=== PATIENT | female | born 1965 | race African-American/Black ===

== ENCOUNTER 2016-10-21 09:00 | Day surgery (SDC) | payer BC, OTHER ==
[2016-10-13 11:01] LABS: HEMATOCRIT 39.1 % (36.0-48.0); HEMOGLOBIN 12.9 g/dL (12.0-16.0)
--- NOTE | ~2016-10-21 | OP ---
Record Of Operation [facility] [address] [place]. [address] NAME: KENNETH CHANEL : 63 STATUS : REG [facility] [place] PAT#: [id number] AGE: 51 ADM/REG DATE : 10/20/16 MR#: [id number] REPORT SERV DATE: 10/21/16 DICTATED BY: JERALD MCKEON DATE: 10/21/16 REPORT STATUS : Draft TRANSCRIBED BY: MODMaya DATE: 10/21/16 DATE OF PROCEDURE: 10/21/2016 PREOPERATIVE DIAGNOSES: Medial thigh tissue excess, laxity, ptosis, and lipodystrophy. POSTOPERATIVE DIAGNOSES: Medial thigh tissue excess, laxity, ptosis, and lipodystrophy. PROCEDURE PERFORMED: Bilateral medial thigh lifts with liposuction. ANESTHESIA: General. ESTIMATED BLOOD LOSS: 50 mL. DETAILS OF PROCEDURE: After informed consent was obtained preoperatively. The patient remained under general anesthesia following her orthopedic procedure performed by Dr. Yandel Sanchez. She was repositioned and re-prepped and draped for the medial thigh lift. The areas of planned incision and dissection were infiltrated with local anesthetic mix as well as tumescent solution being infiltrated for the areas of planned liposuction. This was given time to take effect. A total of 600 mL of tumescent solution was used and then liposuction was performed bilaterally for contouring and pretunneling, removing 550 mL from the right and 475 mL from the left. Following this starting on the left side, the tissue excision was performed using a hockey-stick type technique and incision line coursing from the groin to the posterior medial thigh. The area was excised sharply with electrocautery removing skin and fatty tissue. Any significant lymphatic and/or neurovascular structures were doubly clamped, divided, and ligated as needed. Ligation was with 3-0 Vicryl ties. After removal of the skin and fatty tissue, closure was performed in a layered fashion with a deep layer of 2-0 V-Loc 180 followed by 3-0 and 4-0 Monocryl running, layered closure. A similar procedure was performed bilaterally. From the left side, 208.8 g of tissue were removed, and from the right side, 167.3 g of tissue were removed. After completion of the skin closure, Dermabond was applied. Sterile dressings were applied. She was placed in postoperative garments and taken to PACU in stable condition. The patient tolerated the procedure well. Sponge and needle counts were correct. CC/MODL Jerald Mckeon M.D. / [id number] CC: MD EMMY Ervin STEVEN NICHOLAS
--- NOTE | ~2016-10-21 | OP ---
Record Of Operation [facility] [address] [facility] [place] [address] NAME: KENNETH CHANEL : 63 STATUS : REG [facility] [place] PAT#: [id number] AGE: 51 ADM/REG DATE : 10/20/16 MR#: [id number] REPORT SERV DATE: 10/21/16 DICTATED BY: YANDEL PITTS DATE: 10/21/16 REPORT STATUS : Draft TRANSCRIBED BY: MODL DATE: 10/21/16 DATE OF PROCEDURE: 10/21/2016 PREOPERATIVE DIAGNOSES: 1. Left shoulder impingement syndrome. 2. Left shoulder AC arthritis. POSTOPERATIVE DIAGNOSES: 1. Left shoulder impingement syndrome. 2. Left shoulder AC arthritis. PROCEDURE: 1. Left shoulder arthroscopic distal clavicle resection. 2. Arthroscopic subacromial decompression. SURGEON: Yandel Pitts M.D. ANESTHESIA: General. ESTIMATED BLOOD LOSS: Minimal. IMPLANTS: None. SPECIMEN: None. ANTIBIOTICS: Ancef was given prior to incision. HISTORY: The patient is a 51-year-old female, long-standing history of left shoulder pain, which has been treated conservatively with injections and other treatments. She has failed those treatments. She had a previous decompression on her right shoulder and we discussed the risks and benefits of surgery and of treatment with her. She elected for surgery. We discussed risks including cardiopulmonary complication, anesthesia, damage to surrounding tissues, infection, or continued pain. I discussed all those risks, she elected to proceed. OPERATIVE NOTE: The patient was seen in the preoperative area, consented, and marked. We answered all questions she had to her satisfaction. She was then taken back to the operative suite, placed in supine, and underwent general anesthesia. We prepped and draped the left shoulder in sterile fashion after putting her in the beach chair position. We then paused to perform a time-out confirming correct patient, procedure, diagnosis, and extremity. I made a standard posterior portal. I then entered the shoulder joint. Once in the shoulder joint, I made an anterior portal based on spinal needle localization. We examined her shoulder, rotator cuff was intact. Her biceps was intact. Labrum was intact. The cartilage was intact. No significant abnormalities inside the shoulder joint. We then went up into the subacromial space. Once in the subacromial space, we performed a bursectomy Record Of Operation [facility] [address] [place]. [address] NAME: KENNETH CHANEL : 63 STATUS : REG [facility] [place] PAT#: [id number] AGE: 51 ADM/REG DATE : 10/20/16 MR#: [id number] REPORT SERV DATE: 10/21/16 DICTATED BY: YANDEL PITTS DATE: 10/21/16 REPORT STATUS : Draft TRANSCRIBED BY: DAFNE DATE: 10/21/16 with a shaver. I then performed acromioplasty with a bur. We then identified the distal clavicle and performed a distal clavicle resection with a bur. This was completed, we exited the shoulder, we then closed all the wounds, placed her in a sling. She was awakened with no complications and taken to PACU in stable condition. POSTOP PLAN: She will be discharged home today. BERTA/DAFNE Yandel Pitts MD / [id number] CC: MD Mario Ervin Steven Nicholas
[~2016-10-21 09:00] MED LIST: ADALAT CC30 MG PO; BENTYL20 PO; CYMBALTA20 PO; MULTIPLE VIT PO; NAP500 PO; NEXIUM40 PO; ULTRAM50 PO; ZANTAC 150 PO; ZOCOR20 PO
== END 2016-10-21 23:59 | disposition home or self-care (01) ==
LOC: MSC 09:00
PROVIDERS: Orthopaedic Surgery Sports Medicine; Plastic Surgery
PROC: 0J0M0ZZ Alteration of Left Upper Leg Subcutaneous Tissue and Fascia, Open Approach (ICD-10-PCS; 2016-10-21)
PROC: 0J0L0ZZ Alteration of Right Upper Leg Subcutaneous Tissue and Fascia, Open Approach (ICD-10-PCS; 2016-10-21)
PROC: 0PBB4ZZ Excision of Left Clavicle, Percutaneous Endoscopic Approach (ICD-10-PCS; principal; 2016-10-21 07:15)
PROC: 0RNK4ZZ Release Left Shoulder Joint, Percutaneous Endoscopic Approach (ICD-10-PCS; 2016-10-21 07:15)
DX: M75.42 Impingement syndrome of left shoulder (principal); M19.012 Primary osteoarthritis, left shoulder; E88.1 Lipodystrophy, not elsewhere classified; I73.00 Raynaud's syndrome without gangrene; M48.00 Spinal stenosis, site unspecified; M79.7 Fibromyalgia; K21.9 Gastro-esophageal reflux disease without esophagitis; K58.9 Irritable bowel syndrome, unspecified; K44.9 Diaphragmatic hernia without obstruction or gangrene; Z88.8 Allergy status to other drugs, medicaments and biological substances; Z90.49 Acquired absence of other specified parts of digestive tract; Z90.710 Acquired absence of both cervix and uterus; Z98.890 Other specified postprocedural states; Z79.899 Other long term (current) drug therapy; Z86.010 Personal history of colon polyps
CPT/HCPCS: 85014; 85018; 93005; A9270-GY; J0690; J2250; J2405; J2710; J2795; J3010

== ENCOUNTER 2016-11-07 18:14 | Inpatient (IN) | payer BC, OTHER ==
--- NOTE | ~2016-11-07 | DS ---
Discharge Summary [facility] [address] [place]. [address] NAME: KENNETH CHANEL : 63 STATUS : DIS IN PAT#: [id number] AGE: 51 ADM/REG DATE : 11/07/16 MR#: [id number] REPORT SERV DATE: 11/10/16 DICTATED BY: RENE ROOT DATE: 11/10/16 REPORT STATUS : Draft TRANSCRIBED BY: MODL DATE: 11/10/16 ADMISSION DATE: 11/07/2016 DISCHARGE DATE: 11/10/2016 REASON FOR ADMISSION: This is a 51-year-old Afro-[place] female, who came in with chief complaint of shortness of breath and dyspnea on exertion. The patient had a recent left shoulder surgery on 10/21/2016 as well as left thigh surgery recently as well. In the emergency room, a CTA of the chest revealed bilateral pulmonary emboli and the patient was hemodynamically stable, so hospitalist was asked to admit the patient. DISCHARGE DIAGNOSES: 1. Acute bilateral pulmonary emboli, status post recent surgery. 2. Hypoxemia, resolved. 3. Raynaud's disease. HOSPITAL COURSE: Bilateral pulmonary emboli. The patient was admitted, started on Lovenox subcu 1 mg/kg and bilateral lower extremity ultrasound was obtained which was negative for DVT, also left upper extremity ultrasound obtained which was negative for DVT as well. The patient was converted over to oral Eliquis. Initially, she was requiring O2 on admission, but she has since weaned off. O2 sats within normal limits on room air. No dyspnea. No chest pain. Vital signs stable. The patient will be sent home with a prescription for three months of oral Eliquis. DISCHARGE CONDITION: Stable. DISCHARGE MEDICATIONS: 1. Zofran 8 mg p.o. p.r.n. 2. Valium 5 mg to 10 mg p.o. q.4 hours p.r.n. muscle spasms. 3. Dilaudid 2 mg to 4 mg p.o. q.4 hours p.r.n. pain. 4. Nexium 40 mg p.o. daily. 5. Nifedipine XL 30 mg p.o. daily. 6. Eliquis 10 mg p.o. b.i.d. x7 days, then 5 mg p.o. b.i.d. after that. DISCHARGE PLAN: The patient is discharged to home. Follow up with primary care, Ricky Martin, in one to two weeks. VINOD/DAFNE Rene Root APN / [id number] CC: Discharge Summary [address] [address] NAME: KENNETH CHANEL : 63 STATUS : DIS IN PAT#: [id number] AGE: 51 ADM/REG DATE : 11/07/16 MR#: [id number] REPORT SERV DATE: 11/10/16 DICTATED BY: RENE ROOT DATE: 11/10/16 REPORT STATUS : Draft TRANSCRIBED BY: DAFNE DATE: 11/10/16 Chio Oliveros STEVEN NICHOLAS
--- NOTE | ~2016-11-07 | HP ---
History And Physical [facility] [id number] [place]. [address] NAME: KENNETH CHANEL : 63 STATUS : ADM Rodrigo PAT#: [id number] AGE: 51 ADM/REG DATE : 11/07/16 MR#: [id number] REPORT SERV DATE: 11/08/16 DICTATED BY: MIKHAIL TOLLIVER DATE: 11/08/16 REPORT STATUS : Draft TRANSCRIBED BY: MODL DATE: 11/08/16 DATE OF ADMISSION: 11/07/2016 CHIEF COMPLAINT: Shortness of breath and dyspnea with exertion. HISTORY OF PRESENT ILLNESS: This is a 51-year-old, female, who presents to the emergency room at [facility] with the above-mentioned complaint. History is obtained from Mrs. Chanel and reviewing data available on the [employer] system. Mrs. Chanel is a very pleasant 51-year-old who had a left shoulder surgery on 10/21/2016 and was sent home the same day. Since then, she has been a little more sedentary than she always was and few days ago she started having shortness of breath. She also had dyspnea with exertion which progressively worsened to the point today she had dyspnea even at rest. She also had substernal chest pain which was aggravated with deep inspiration or coughing. She had no hemoptysis during this time. In the emergency room, initial workup including CTA of her chest revealed bilateral pulmonary emboli and Hospitalist Service was asked to admit her for further evaluation and treatment. At the time of my evaluation, she continued to have this pleuritic chest pain aggravated with deep inspiration or cough; otherwise, denied any palpitations or orthopnea. She had no cough, hemoptysis, night sweats, or weight loss. She has not had any recent falls or loss of consciousness. She did not have any fevers, chills, nausea, vomiting, diarrhea, hematemesis, hematochezia, or hematuria. No other history of recent travel or exposures. PAST MEDICAL HISTORY: Significant for history of recent shoulder surgery on 10/21/[address] Yandel Sanchez where she had left shoulder arthroscopic distal clavicular resection and subacromial decompression. She does have a history of hyperlipidemia, Raynaud's disease, and has had a thigh lift hysterectomy, cholecystectomy, and breast augmentation. SOCIAL HISTORY: She does not smoke, drink, or use recreational drugs. 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 FAMILY HISTORY: Noncontributory. MEDICATIONS: At home were reviewed by me in the chart today and reordered by me. REVIEW OF SYSTEMS: As in history of present illness. All other systems were reviewed in detail and are quite unremarkable. PHYSICAL EXAMINATION: GENERAL: This is a pleasant, 51-year-old, not in any acute distress. HEENT: Head is atraumatic, normocephalic. She is alert, awake, oriented to time, place, and person. Her pupils are equal, reacting to light and accommodating. External ocular History And Physical [place] [id number] [facility] [place]. [address] NAME: KENNETH CHANEL : 63 STATUS : ADM Rodrigo PAT#: [id number] AGE: 51 ADM/REG DATE : 11/07/16 MR#: [id number] REPORT SERV DATE: 11/08/16 DICTATED BY: MIKHAIL TOLLIVER DATE: 11/08/16 REPORT STATUS : Draft TRANSCRIBED BY: DAFNE DATE: 11/08/16 muscles are intact. Membranes are moist and pink. Sclerae are nonicteric. NECK: Supple with no jugular venous distention, lymphadenopathy, or thyromegaly. LUNGS: Clear to auscultation with no wheezes, rubs, or crackles. HEART: Heart sounds were regular with no murmurs, rubs, or gallops. ABDOMEN: Soft, nontender. Bowel sounds are present. EXTREMITIES: No cyanosis, clubbing, or edema. NEUROLOGIC: Grossly intact. No focal sensory or motor deficits. Higher functions appeared intact. Gait was not examined. VITAL SIGNS: Her vital signs today showed a temperature of 98.6, pulse 82, respirations 20 a minute, blood pressure was 126/68 upon arrival. Oxygen saturations were 95-98%, breathing 2 L of oxygen via nasal cannula. LABORATORY DATA: Reviewed on the [employer] system showed a pH of 7.45 on arterial blood gas, pCO2 was 36, PO2 60, and bicarb was 24.9. This was on room air. CMP was within normal limits. Troponin was 0.02. BNP was 5.1. CBC was essentially within normal limits as well. Her D-dimer was elevated at 3.57 today. Urinalysis was grossly unremarkable. Films of the CTA of the chest were reviewed by me on the PACS today and interpreted by me. Per my interpretation, there are bilateral pulmonary emboli with a small right-sided effusion with compressive atelectasis versus infarction. IMPRESSION: 1. Shortness of breath. 2. Acute bilateral pulmonary emboli. 3. Recent shoulder surgery. 4. Raynaud's disease. 5. Hyperlipidemia. PLAN: We will admit Mrs. Chanel to the Hospitalist Service with cardiac telemetry for a 24- hour observation. We will start her on low-molecular weight heparin in a therapeutic dose right away and follow her closely. We will maximize her bronchodilator treatments, continue supplemental oxygen therapy and provide pain control as well. We will continue all other medications and treatments at this time. I have discussed the above plans with the patient. Her questions were answered, and she is agreeable to the above recommendations. We will re- evaluate her in the morning and if possible transition to oral anticoagulation. Hospitalist Service will be following her. /DAFNE Mikhail Tolliver M.D. / [id number] CC: Gerson Jennings, History And Physical [address] [address] NAME: KENNETH CHANEL : 63 STATUS : ADM Rodrig[facility] PAT#: [id number] AGE: 51 ADM/REG DATE : 11/07/16 MR#: [id number] REPORT SERV DATE: 11/08/16 DICTATED BY: IMKHAIL TOLLIVER DATE: 11/08/16 REPORT STATUS : Draft TRANSCRIBED BY: DAFNE DATE: 11/08/16 SYDNEY BOOTH
[2016-11-07 15:15] LABS: BASOPHILS 0.2 %; BASOPHILS ABSOLUTE 0.02 10/3/uL (0.0-0.16); EOSINOPHILS 0.5 %; EOSINOPHILS ABSOLUTE 0.04 10/3/uL (0.0-0.53); HEMATOCRIT 38.2 % (36.0-48.0); HEMOGLOBIN 12.6 g/dL (12.0-16.0); IMMATURE GRANULOCYTES 0.2 %; IMMATURE GRANULOCYTES ABSOLUTE 0.02 10/3/uL (0.0-0.11); LYMPHOCYTES 26.2 %; LYMPHOCYTES ABSOLUTE 2.21 10/3/uL (0.67-4.30); MEAN CORPUSCULAR HEMOGLOB 28.4 pg (26.0-34.0); MEAN PLATELET VOLUME 8.9 fL (9.2-13.0); MONOCYTES 11.2 %; MONOCYTES ABSOLUTE 0.95 10/3/uL (0.21-1.20); NEUTROPHILS 61.7 %; NEUTROPHILS ABSOLUTE 5.21 10/3/uL (2.02-8.40); PLATELET COUNT 334 10/3/uL (150-400); RED CELL COUNT 4.44 10/6/uL (4.0-5.6); WHITE BLOOD CELLS 8.5 10/3/uL (4.5-10.5)
[2016-11-07 15:17] LABS: MANUAL DIFF NO %
[2016-11-07 15:23] LABS: INTERNATIONAL NORMAL RATI 1.2 UNITS (-); PARTIAL THROMBO TIME 33.1 SEC (22.5-37.2); PROTIME (NOT ORD) 15.1 SEC (12.0-14.5)
[2016-11-07 15:32] LABS: CALCIUM, SERUM 9.4 MG/DL (8.5-10.4); CHEST PAIN PROFILE TAT 0 Hrs 21 Mins; CHLORIDE, SERUM 103 MMOL/L (96-112); CO2 (CARBON DIOXIDE) 28 MMOL/L (24-34); GFR AFRICAN AMERICAN 75 ML/MIN (>=60); GFR NON AFRICAN AMERICAN 65 ML/MIN (>=60); GLUCOSE, SERUM 90 MG/DL (60-99); SODIUM, SERUM 137 MMOL/L (135-148); TROPONIN I <0.02 NG/ML (<0.05)
[2016-11-07 15:33] LABS: BUN (BLOOD UREA NITROGEN) 10 MG/DL (6-23)
[2016-11-07 18:19] LABS: ASCORBIC ACID (UR NOT ORDER) NEG (NEG); BILIRUBIN, URINE NEGATIVE (NEG); KETONE, URINE NEGATIVE (NEG); LEUKOCYTE ESTERASE(NOT OR NEG (NEG); NITRITE (URINE) NEG (NEG); WBC (NOT ORDERED) (RFLEX) 2 (0-5)
[2016-11-07 18:21] LABS: D-DIMER QUANTITATIVE 3.57 ug/mLFEU (< 0.50)
[2016-11-07 18:53] LABS: SED RATE 76 MM/HR (0-20)
[2016-11-07 19:45] LABS: BE (BASE EXCESS) 1.2 MEQ/L (0 +/- 2.5); CARBOXYHEMOGLOBIN 1.4 % (0-3); HCO3 (ACTUAL BICARBONATE) 24.9 MEQ/L (23-27); HEMOBLOGIN CONTENT 12.3 G/DL (12-16); INSTRUMENT SERIAL # 8087; METHEMOGLOBIN 0.3 % (0-3); O2 CONTENT 15.6 VOL% (18-24); PCO2 (CO2 TENSION) 36 MMHG (35-45); PO2 (O2 TENSION) 60 MMHG (79-93); SAMPLE Arterial; pH 7.45 (7.37-7.43)
[2016-11-07] MEDS ORDERED: ZOFRAN8 PO (21:47)
[2016-11-07] MEDS ORDERED: DIL2TAB PO (21:48)
[2016-11-07] MEDS ORDERED: V5 PO (21:48)
[2016-11-07] MEDS ORDERED: DURICEF PO (21:48)
[2016-11-07] MEDS ORDERED: NEXIUM40 PO (21:49)
[2016-11-07] MEDS ORDERED: NIFEDICAL XL30 MG PO (21:50)
[2016-11-08 05:52] LABS: BASOPHILS 0.3 %; BASOPHILS ABSOLUTE 0.02 10/3/uL (0.0-0.16); EOSINOPHILS 0.7 %; EOSINOPHILS ABSOLUTE 0.05 10/3/uL (0.0-0.53); HEMOGLOBIN 11.2 g/dL (12.0-16.0); IMMATURE GRANULOCYTES 0.3 %; IMMATURE GRANULOCYTES ABSOLUTE 0.02 10/3/uL (0.0-0.11); LYMPHOCYTES 45.6 %; LYMPHOCYTES ABSOLUTE 3.14 10/3/uL (0.67-4.30); MEAN CORPUSCULAR VOLUME 84.8 fL (80-100); MEAN PLATELET VOLUME 8.7 fL (9.2-13.0); MONOCYTES 8.1 %; MONOCYTES ABSOLUTE 0.56 10/3/uL (0.21-1.20); NEUTROPHILS ABSOLUTE 3.09 10/3/uL (2.02-8.40); PLATELET COUNT 307 10/3/uL (150-400); RBC DISTRIBUTION WIDTH 12.9 % (12.0-16.0); WHITE BLOOD CELLS 6.9 10/3/uL (4.5-10.5)
[2016-11-08 05:54] LABS: HEMATOCRIT 33.9 % (36.0-48.0); MANUAL DIFF NO %
[2016-11-08 06:11] LABS: BUN (BLOOD UREA NITROGEN) 12 MG/DL (6-23); CALCIUM, SERUM 8.5 MG/DL (8.5-10.4); CHLORIDE, SERUM 105 MMOL/L (96-112); CO2 (CARBON DIOXIDE) 25 MMOL/L (24-34); CREATININE 0.93 MG/DL (0.55-1.02); GFR AFRICAN AMERICAN 82 ML/MIN (>=60); GFR NON AFRICAN AMERICAN 71 ML/MIN (>=60); PHOSPHORUS, SERUM 4.5 MG/DL (2.5-4.5); POTASSIUM, SERUM 3.7 MMOL/L (3.5-5.3); SODIUM, SERUM 139 MMOL/L (135-148)
[2016-11-08 06:13] LABS: GLUCOSE, SERUM 109 MG/DL (60-99)
[2016-11-08 11:34] LABS: TROPONIN I <0.02 NG/ML (<0.05)
[2016-11-08 11:35] LABS: CK-MB < 0.5 NG/ML; CPK 48 U/L (0-200)
[2016-11-09 06:04] LABS: BASOPHILS 0.2 %; BASOPHILS ABSOLUTE 0.01 10/3/uL (0.0-0.16); EOSINOPHILS 1.2 %; EOSINOPHILS ABSOLUTE 0.07 10/3/uL (0.0-0.53); HEMATOCRIT 36.1 % (36.0-48.0); HEMOGLOBIN 11.9 g/dL (12.0-16.0); IMMATURE GRANULOCYTES 0.2 %; IMMATURE GRANULOCYTES ABSOLUTE 0.01 10/3/uL (0.0-0.11); LYMPHOCYTES 52.5 %; LYMPHOCYTES ABSOLUTE 2.95 10/3/uL (0.67-4.30); MEAN CORPUSCULAR HEMOGLOB 28.1 pg (26.0-34.0); MEAN CORPUSCULAR VOLUME 85.1 fL (80-100); MEAN PLATELET VOLUME 8.6 fL (9.2-13.0); MONOCYTES 8.2 %; MONOCYTES ABSOLUTE 0.46 10/3/uL (0.21-1.20); NEUTROPHILS 37.7 %; NEUTROPHILS ABSOLUTE 2.12 10/3/uL (2.02-8.40); PLATELET COUNT 307 10/3/uL (150-400); RBC DISTRIBUTION WIDTH 12.8 % (12.0-16.0); RED CELL COUNT 4.24 10/6/uL (4.0-5.6); WHITE BLOOD CELLS 5.6 10/3/uL (4.5-10.5)
[2016-11-09 06:06] LABS: MANUAL DIFF NO %
[2016-11-09 06:18] LABS: BUN (BLOOD UREA NITROGEN) 10 MG/DL (6-23); CALCIUM, SERUM 8.2 MG/DL (8.5-10.4); CHLORIDE, SERUM 107 MMOL/L (96-112); CO2 (CARBON DIOXIDE) 24 MMOL/L (24-34); CREATININE 0.84 MG/DL (0.55-1.02); GFR AFRICAN AMERICAN 93 ML/MIN (>=60); GFR NON AFRICAN AMERICAN 80 ML/MIN (>=60); GLUCOSE, SERUM 92 MG/DL (60-99); PHOSPHORUS, SERUM 3.6 MG/DL (2.5-4.5); SODIUM, SERUM 140 MMOL/L (135-148)
[2016-11-10 06:13] LABS: BASOPHILS 0.2 %; BASOPHILS ABSOLUTE 0.01 10/3/uL (0.0-0.16); EOSINOPHILS ABSOLUTE 0.09 10/3/uL (0.0-0.53); HEMATOCRIT 35.5 % (36.0-48.0); HEMOGLOBIN 11.5 g/dL (12.0-16.0); IMMATURE GRANULOCYTES 0.2 %; IMMATURE GRANULOCYTES ABSOLUTE 0.01 10/3/uL (0.0-0.11); LYMPHOCYTES 42.1 %; LYMPHOCYTES ABSOLUTE 1.93 10/3/uL (0.67-4.30); MEAN CORPUS HGB CONC 32.4 g/dL (32.0-36.0); MEAN CORPUSCULAR HEMOGLOB 27.6 pg (26.0-34.0); MEAN CORPUSCULAR VOLUME 85.1 fL (80-100); MEAN PLATELET VOLUME 8.5 fL (9.2-13.0); MONOCYTES 9.4 %; MONOCYTES ABSOLUTE 0.43 10/3/uL (0.21-1.20); NEUTROPHILS 46.1 %; NEUTROPHILS ABSOLUTE 2.11 10/3/uL (2.02-8.40); PLATELET COUNT 339 10/3/uL (150-400); RBC DISTRIBUTION WIDTH 12.8 % (12.0-16.0); RED CELL COUNT 4.17 10/6/uL (4.0-5.6); WHITE BLOOD CELLS 4.6 10/3/uL (4.5-10.5)
[2016-11-10 06:16] LABS: MANUAL DIFF NO %
[2016-11-10 06:30] LABS: BUN (BLOOD UREA NITROGEN) 8 MG/DL (6-23); CALCIUM, SERUM 9.1 MG/DL (8.5-10.4); CHLORIDE, SERUM 109 MMOL/L (96-112); CO2 (CARBON DIOXIDE) 23 MMOL/L (24-34); CREATININE 0.81 MG/DL (0.55-1.02); GFR AFRICAN AMERICAN 97 ML/MIN (>=60); GFR NON AFRICAN AMERICAN 84 ML/MIN (>=60); GLUCOSE, SERUM 88 MG/DL (60-99); PHOSPHORUS, SERUM 3.9 MG/DL (2.5-4.5); POTASSIUM, SERUM 4.1 MMOL/L (3.5-5.3); SODIUM, SERUM 141 MMOL/L (135-148)
[2016-11-10] MEDS ORDERED: ELIQUIS 5 MG TAB5 MG PO (14:50)
[2016-11-10] MEDS ORDERED: NEOSPORIN OPH S10 ML OPH (14:51)
== END 2016-11-10 15:58 | disposition home or self-care (01) | DRG 299 ==
LOC: ER 18:14 → 1SO 22:16
PROVIDERS: Emergency Medicine; Internal Medicine; Internal Medicine Pulmonary Disease; Nurse Practitioner Family
DX: T81.718A Complication of other artery following a procedure, not elsewhere classified, initial encounter (principal); J96.91 Respiratory failure, unspecified with hypoxia; J90 Pleural effusion, not elsewhere classified; I26.99 Other pulmonary embolism without acute cor pulmonale; I10 Essential (primary) hypertension; E78.5 Hyperlipidemia, unspecified; I73.00 Raynaud's syndrome without gangrene; Y83.8 Other surgical procedures as the cause of abnormal reaction of the patient, or of later complication, without mention of misadventure at the time of the procedure; Z79.899 Other long term (current) drug therapy
CPT/HCPCS: 36600; 71020; 71275; 80048; 81001; 82550; 82553; 82805; 83735; 83880; 84100; 84484; 85025; 85379; 85610; 85652; 85730; 86140; 93970; 93971; 96372; 99285; A9270-GY; C8929; Q9957; Q9967